=== PATIENT | male | born 1995 | race Caucasian/White ===

== ENCOUNTER 2022-03-03 12:00 | Observation (INO) | payer BC ==
[~2022-03-03] VITALS: Ht 182.9 cm; Wt 83.3 kg
[2022-03-03 12:42] LABS: BASO # 0.1 K/mm3 (0.0-0.2); BASO % 0.7 % (0.0-2.0); EOS # 0.1 K/mm3 (0.0-0.7); EOS % 1.1 % (0.0-4.0); GRAN # 4.6 K/mm3 (1.4-6.5); GRAN % 59.7 % (42.2-75.2); HEMATOCRIT 43.5 % (42.0-52.0); HEMOGLOBIN 14.6 g/dl (13.5-18.0); LYMPH # 2.4 K/mm3 (1.2-3.4); LYMPH % 31.1 % (20.0-51.0); MEAN CELL VOLUME 86 fl (80.0-100.0); MEAN CORPUSCULAR HEMOGLOBIN 29 pg (27-31); MEAN CORPUSCULAR HGB CONC 34 g/dl (33.0-37.0); MEAN PLATELET VOLUME 8.9 fl (7.4-10.4); MONO # 0.5 K/mm3 (0.1-0.6); MONO % 7.1 % (1.7-9.3); PLATELET COUNT 296 K/mm3 (130-400); RED BLOOD COUNT 5.05 M/mm3 (4.20-5.60); REDCELL DISTRIBUTION WIDTH-CV 13.4 % (11.5-14.5)
[2022-03-03 12:56] LABS: ALBUMIN 4.3 gm/dL (3.5-5.0); BILIRUBIN,TOTAL 0.5 mg/dL (0.2-1.2); CALCIUM 9.6 mg/dL (8.4-10.2); CREATININE, serum 0.87 mg/dL (0.72-1.25); TOTAL PROTEIN 7.5 gm/dL (6.2-8.1)
[2022-03-03 13:05] LABS: TROPONIN-I 0.127 ng/mL (0.00-0.033)
--- NOTE | 2022-03-03 16:20 | NUR ---
arrived on unit from ED per WC, assisted out of WC and into bed, has INT to right forearm, telemetry on, full assessment completed, see interventions for further info, instructed on ordering something to eat and verbalizes understanding, denies further needs
--- NOTE | 2022-03-03 16:40 | NUR ---
resting in bed has ordered supper
--- NOTE | 2022-03-03 18:44 | NUR ---
had supper and tolerated well, and child at bedside, bedside report given to AMANDA Ortega
[2022-03-03 20:00] VITALS: BP 129/70; PULSE 67; TEMP 98.1
--- NOTE | 2022-03-03 21:24 | NUR ---
Patient A/Ox4, VSS, head to toe assessment done, see shift assessment, with INT on RFA infusing well, denies pain or discomfort at this time, denies further need at this time, call light and personal items within reach, will continue to monitor.
[2022-03-03 23:42] VITALS: BP 130/67; PULSE 70; TEMP 98.6
[2022-03-04 04:24] VITALS: BP 126/63; PULSE 77; TEMP 98
[2022-03-04 06:55] LABS: BASO % 0.6 % (0.0-2.0); EOS # 0.2 K/mm3 (0.0-0.7); EOS % 2.2 % (0.0-4.0); GRAN # 3.7 K/mm3 (1.4-6.5); GRAN % 51.1 % (42.2-75.2); HEMATOCRIT 42.9 % (42.0-52.0); HEMOGLOBIN 14.2 g/dl (13.5-18.0); LYMPH # 2.7 K/mm3 (1.2-3.4); LYMPH % 37.2 % (20.0-51.0); MEAN CELL VOLUME 86 fl (80.0-100.0); MEAN CORPUSCULAR HEMOGLOBIN 29 pg (27-31); MEAN CORPUSCULAR HGB CONC 33 g/dl (33.0-37.0); MEAN PLATELET VOLUME 9.1 fl (7.4-10.4); MONO # 0.6 K/mm3 (0.1-0.6); MONO % 8.6 % (1.7-9.3); PLATELET COUNT 291 K/mm3 (130-400); RED BLOOD COUNT 4.97 M/mm3 (4.20-5.60); REDCELL DISTRIBUTION WIDTH-CV 13.5 % (11.5-14.5)
[2022-03-04 07:01] LABS: CALCIUM 9.7 mg/dL (8.4-10.2); CHOLESTEROL RISK RATIO 4.6; CREATININE, serum 0.94 mg/dL (0.72-1.25); POTASSIUM 3.9 mmol/L (3.5-4.5)
[2022-03-04 07:12] LABS: TROPONIN-I 0.137 ng/mL (0.00-0.033)
[2022-03-04 08:44] VITALS: BP 107/53; PULSE 60; TEMP 97.8
--- NOTE | 2022-03-04 09:14 | NUR ---
WALDO met with the patient and his , Geeta (ph#[phone]), to discuss discharge plan. The patient lives in [place] with his and children. He reports independence with ADLs and does not have any DME. The patient states that he does not have a DPOA-HC and he was not interested in completing one at this time. The patient plans to return home with his family upon discharge. No additional needs at this time. *Discharge plan: home with family*
--- NOTE | 2022-03-04 09:52 | NUR ---
UP DATED SYLVIA DEJESUS @0812 OF LAB RESULTS
--- NOTE | 2022-03-04 09:55 | NUR ---
PT INDEPENDENT IN ROOM AND HALLS. PT DENIES NEEDS AT THIS TIME. DENIES PAIN.
[2022-03-04 12:53] VITALS: BP 126/62; PULSE 79; TEMP 98.5
--- NOTE | 2022-03-04 14:01 | NUR ---
Carrie: [employer] Situation: [employer] stopped by room on rounds Background: Pt was resting and content with his by his side Assessment: Pt stated he hoped to get out today. No other needs right now. Pt and appreciated the visit. Recommendation: [employer] will follow up as needed
--- NOTE | 2022-03-04 14:48 | NUR ---
NOTIFIED DR. ARMSTRONG AND CARDIOLOGY OF PT TACHYCARDIA.
[2022-03-04] MEDS ORDERED: MOTRIN 200200 MG/TAB PO (15:26)
[2022-03-04] MEDS ORDERED: COLCRYS0.6 MG PO (15:27)
[2022-03-04] MEDS ORDERED: PROTONIX 40MG T40 MG PO (15:28)
--- NOTE | 2022-03-04 16:31 | NUR ---
DISCHARGE INSTRUCTIONS REVIEWED WITH PATIENT AND . QUESTIONS ANSWERED. PT LEFT UNIT AMBULATORY WITH STAFF.
== END 2022-03-04 16:32 | disposition home or self-care (01) ==
LOC: COL.ER 12:00 → SURG 13:36
PROVIDERS: Nurse Practitioner; Physician Assistant; ADMIT Student in an Organized Health Care Education/Training Program
DX: I21.A1 Myocardial infarction type 2 (principal); Z20.822 Contact with and (suspected) exposure to COVID-19; Z28.310 Unvaccinated for COVID-19; Z28.9 Immunization not carried out for unspecified reason
CPT/HCPCS: G0378